=== PATIENT | female | born 2000 | race Caucasian/White ===

== ENCOUNTER 2022-02-15 08:36 | Outpatient (REF) | payer OTHER, SELFPAY ==
[2022-02-15 11:20] LABS: MANUAL DIFF FLAG NO
[2022-02-15 11:41] LABS: Alanine Aminotransferase 8 U/L (0-31); Anion Gap 13 (12-20); Aspartate Amino Transferase 14 U/L (5-31); Blood Urea Nitrogen 14 mg/dL (9-16); Calcium 9.7 mg/dL (8.4-10.2); Carbon Dioxide 27 mmol/L (22-29); Chloride 105 mmol/L (96-108); Cholesterol 202 mg/dL; Estimated Glomerular Filt Rate > 60; Glucose Fasting 100 mg/dL (60-99); HDL Cholesterol 79 mg/dL; LDL Cholesterol Calculated 115 mg/dl; Potassium 4.4 mmol/L (3.3-5.1); Sodium 141 mmol/L (135-145); Triglycerides 41 mg/dL
[2022-02-15 11:46] LABS: Basophils Percent Auto 0.9 % (0-2); Eosinophils Absolute Auto 0.1 X10*3/uL (0.0-0.4); Eosinophils Percent Auto 1.4 % (0-4); Imm Gran Abs Auto 0.01 X10*3/uL (0.00-0.03); Imm Gran Pct Auto 0.2 % (0.0-0.4); Lymphocytes Absolute Auto 1.6 X10*3/uL (1.2-4.9); Lymphocytes Percent Auto 35.5 % (20-40); Mean Corpuscular HGB Conc 32.4 g/dl (31.0-35.0); Mean Corpuscular Hemoglobin 28.6 pg (27.0-33.0); Mean Corpuscular Volume 88.3 fL (80.0-98.0); Mean Platelet Volume 10.1 fL (9.4-12.3); Monocytes Absolute Auto 0.4 X10*3/uL (0.1-1.2); Monocytes Percent Auto 7.9 % (2-11); Neutrophils Absolute Auto 2.4 x10*3/uL (2.0-8.3); Neutrophils Percent Auto 54.1 % (45-73); Platelet Count 231 X10*3/uL (160-400); Red Blood Count 4.19 X10*6/uL (4.20-5.50); Red Cell Distribution Width 12.4 % (11.0-16.0); White Blood Count 4.4 X10*3/uL (4.8-10.8)
[2022-02-15 12:08] LABS: Vitamin D 25-OH Total 15.6 ng/mL (>30)
== END 2022-02-15 08:37 | disposition home or self-care (01) ==
LOC: HO.HMGCLDS 08:36
PROVIDERS: PCP Internal Medicine; Visit Provider Internal Medicine
DX: Z00.01 Encounter for general adult medical examination with abnormal findings (principal); F41.1 Generalized anxiety disorder
CPT/HCPCS: 36415; 80048; 80061; 82306; 84450; 84460; 85025

== ENCOUNTER 2022-11-02 12:03 | Outpatient (REF) | payer OTHER, SELFPAY ==
[2022-11-02 13:55] LABS: MANUAL DIFF FLAG NO
[2022-11-02 14:35] LABS: Eosinophils Absolute Auto 0.1 X10*3/uL (0.0-0.4); Eosinophils Percent Auto 1.2 % (0-4); Hemoglobin 12.6 g/dl (12.0-16.0); Imm Gran Abs Auto 0.01 X10*3/uL (0.00-0.03); Imm Gran Pct Auto 0.2 % (0.0-0.4); Lymphocytes Absolute Auto 1.5 X10*3/uL (1.2-4.9); Lymphocytes Percent Auto 36.4 % (20-40); Mean Corpuscular HGB Conc 32.3 g/dl (31.0-35.0); Mean Corpuscular Volume 89.7 fL (80.0-98.0); Mean Platelet Volume 10.4 fL (9.4-12.3); Monocytes Absolute Auto 0.5 X10*3/uL (0.1-1.2); Monocytes Percent Auto 11.4 % (2-11); Neutrophils Absolute Auto 2.1 x10*3/uL (2.0-8.3); Neutrophils Percent Auto 49.8 % (45-73); Platelet Count 249 X10*3/uL (160-400); Red Blood Count 4.35 X10*6/uL (4.20-5.50); Red Cell Distribution Width 12.4 % (11.0-16.0); White Blood Count 4.2 X10*3/uL (4.8-10.8)
[2022-11-02 14:41] LABS: Anion Gap 13 (12-20); Blood Urea Nitrogen 13 mg/dL (9-16); Calcium 10.2 mg/dL (8.4-10.2); Carbon Dioxide 25 mmol/L (22-29); Chloride 105 mmol/L (96-108); Cholesterol 191 mg/dL; Estimated Glomerular Filt Rate > 60; Glucose Fasting 88 mg/dL (60-99); HDL Cholesterol 76 mg/dL; LDL Cholesterol Calculated 107 mg/dl; Sodium 139 mmol/L (135-145); Triglycerides 40 mg/dL
[2022-11-02 14:49] LABS: Vitamin D 25-OH Total 45.2 ng/mL (>30)
== END 2022-11-02 12:04 | disposition home or self-care (01) ==
LOC: HO.HMGCLDS 12:03
PROVIDERS: PCP Internal Medicine; Visit Provider Internal Medicine
DX: D72.819 Decreased white blood cell count, unspecified (principal); R73.01 Impaired fasting glucose
CPT/HCPCS: 36415; 80048; 80061; 82306; 85025

== ENCOUNTER 2025-03-15 09:31 | Outpatient (REF) | payer BC, SELFPAY ==
[2025-03-15 11:25] LABS: MANUAL DIFF FLAG NO
[2025-03-15 11:45] LABS: Hematocrit 36.5 % (37.0-47.0); Hemoglobin 12.1 g/dl (12.0-16.0); Imm Gran Abs Auto 0.01 X10*3/uL (0.00-0.03); Imm Gran Pct Auto 0.2 % (0.0-0.4); Lymphocytes Absolute Auto 1.4 X10*3/uL (1.2-4.9); Mean Corpuscular HGB Conc 33.2 g/dl (31.0-35.0); Mean Corpuscular Hemoglobin 28.7 pg (27.0-33.0); Mean Corpuscular Volume 86.7 fL (80.0-98.0); NRBC Abs Auto 0.000 X10*3/uL (0.0-0.012); NRBC Pct Auto 0.0 /100WBC (0.0-0.2); Platelet Count 245 X10*3/uL (160-400); Red Blood Count 4.21 X10*6/uL (4.20-5.50); White Blood Count 4.3 X10*3/uL (4.8-10.8)
[2025-03-15 12:08] LABS: Alanine Aminotransferase 11 U/L (0-31); Aspartate Amino Transferase 18 U/L (5-31); Cholesterol 190 mg/dL (<200); HDL Cholesterol 85 mg/dL (>40); Triglycerides 32 mg/dL (<150)
== END 2025-03-15 09:32 | disposition home or self-care (01) ==
LOC: HO.HMGCLDS 09:31
PROVIDERS: PCP Internal Medicine; Visit Provider Internal Medicine
DX: F41.1 Generalized anxiety disorder (principal); R73.01 Impaired fasting glucose; D72.819 Decreased white blood cell count, unspecified; Z13.220 Encounter for screening for lipoid disorders; Z13.6 Encounter for screening for cardiovascular disorders
CPT/HCPCS: 36415; 80061; 82306; 82947; 84450; 84460; 85025

== ENCOUNTER 2025-03-17 09:42 | Outpatient (AMB) | payer BC, SELFPAY ==
--- NOTE | 2025-03-17 09:46 | MHC.PC.OV ---
Vital Signs 03/17/25 09:51 Height 5 ft 5 in Weight 138 lb BMI 23.0 BP 90/60 Blood Pressure Location Lt brachial Position Sitting Respiration 16 Pulse 97 Pulse Source Pulse Oximeter Temp 98.1 F Temp Source Oral Pulse Oximetry (%) 99 Oxygen Delivery Method Room Air Intake Visit Reasons: Annual PE Intake Note: Pt is here today for her PE: Employee Benefits Director Required: No Is last menstrual period known: Yes Last menstrual period: 02/28/25 Allergies No Known Allergies Allergy (Verified 03/17/25 10:01) Medication List - Last Reconciled 03/17/25 by Annalisa Fuller MD calcium carbonate-vitamin D3 600 mg-25 mcg (1,000 unit) caps PO escitalopram oxalate 5 mg PO DAILY Tobacco use date assessed: 03/17/25 Dental Screening Dental Screen Date: 03/17/25 Did you have a dental visit in the last 12 months?: Yes Did you have a dental problem in the last 6 months where you did not have access to dental care?: No Was dental information given to patient?: Patient has dentist HPI Annual PE HPI Details 24-year-old lady here today for her physical exam. She has history of generalized anxiety disorder currently on escitalopram 5 mg once a day, which has been helping control her anxiety attacks. She is currently working in a [employer], and is also pursuing her [employer]. Dose at least 40 minutes of cardio exercise, has been compliant with healthy eating habits , eats home cooked meals She wears contact lenses and glasses, has myopia, up-to-date with her eye exam Patient has never been sexually active, would like to defer her routine Pap and pelvic exam Had recent fasting labs done which showed low normal hemoglobin hematocrit with leukopenia, normal differential, and fasting glucose, liver enzymes lipids and vitamin-D levels were all within normal limits She does not want to get a flu shot, gets very sick with the vaccine, but agrees to get her Tdap today. Does not want to get any COVID booster [facility] Medical History Impaired fasting glucose Leukopenia History of vitamin D deficiency Generalized anxiety disorder Surgical History No pertinent past surgical history Family History Paternal Grandmother Diabetes mellitus Maternal Grandfather Diabetes mellitus Social History Household Members: Family Housing: House Alcohol intake: never Patient Tobacco Use Status: Never used Tobacco e-Cigarette/Vaping Use: Never Used service: No Current occupational status: employed and student Current occupation: Works in [employer] and studying for her [employer] Current occupational exposures/hazards: No Cognitive needs: No Hearing needs: No Vision needs: Yes Female Reproductive History Menstrual Age of Menarche: 12 Duration of menses: 3-5 days Date of last menstrual period: 02/28/25 control method: none Questionnaire PHQ-9 Over the last 2 weeks, how often have you been bothered by any of the following problems? 1. Little interest or pleasure in doing things: not at all 2. Feeling down, depressed, or hopeless: not at all 3. Trouble falling or staying asleep, or sleeping too much: not at all 4. Feeling tired or having little energy: not at all 5. Poor appetite or overeating: not at all 6. Feeling bad about yourself - or that you are a failure or have let yourself or your family down: not at all 7. Trouble concentrating on things, such as reading the newspaper or watching television: not at all 8. Moving or speaking so slowly that other people could have noticed. Or the opposite - being so fidgety or restless that you have been moving around a lot more than usual: not at all 9. Thoughts that you would be better off or of hurting yourself in some way: not at all Total score: 0 Depression Screening Interpretation: Negative Depression Screening Done: Yes 58586 - PHQ-9 Billing: Yes Source: Developed by Drs. Derick Costello, Dary Durham, Naldo Fields and colleagues, with an educational ced from [employer]. Thrive Questionnaire Date Thrive assessed: 03/17/25 I am a: Patient What is your living situation today?: I have a steady place to live Within the past 12 months, did the food you bought not last and you didn't have the money to get more?: Never true Within the past 12 months, did you worry whether your food would run out before you got money to buy more?: Never true Do you have trouble paying for medicines?: No Do you have trouble getting transportation to medical appointments?: No Do you have trouble paying your heating and electricity bill?: No Do you have trouble taking care of your child, family member or friend?: No Do you have trouble with day-to-day activities such as bathing, preparing meals, shopping, managing finances, etc.?: No Are you currently unemployed and looking for a job?: No Are you interested in more education?: No THRIVE Score: 0 AUDIT C Alcohol Use Questionnaire (AUDIT-C) 1. How often do you have a drink containing alcohol?: Never Total Score: 0 Score Reviewed/Action Taken: Yes IRMA-7 AMB Questionnaire IRMA-7 Feeling nervous, anxious, or on edge: 1 = Several days Not being able to stop or control worryin = Several days Worrying too much about different things: 2 = More than half the days Trouble relaxin = Not at all Being so restless that it is hard to sit still: 0 = Not at all Becoming easily annoyed or irritable: 1 = Several days Feeling afraid as if something awful might happen: 0 = Not at all Total IRMA-7 score (0-4 normal; 5-9 mild; 10-14 moderate; 15-21 severe): 5 Source: Developed by Drs. Derick Costello, Dary Durham, Naldo Fields and colleagues, with an educational ced from [employer]. IRMA-7 Assessment Billing IRMA-7 Assessment Tool: IRMA-7 Assessment 91561 Review of Systems Const Denies body aches, Denies fever(s), Denies headache(s) and Denies weakness Eyes Reports no additional complaints and Reports requires corrective lenses ENT Denies dizziness, Denies headache(s), Denies nasal congestion, Denies nasal discharge and Denies sore throat Card Denies chest pain, Denies lightheadedness and Denies dyspnea Resp Denies chest congestion, Denies cough, Denies dyspnea and Denies wheezing GI Denies abdominal pain, Denies change in bowel habits and Denies heartburn Denies abnormal menses, Denies hematuria, Denies urinary frequency, Denies genital lesions, Denies dysuria and Denies urinary urgency Musc Reports no additional complaints Skin/Breast Denies breast pain, Denies breast mass, Denies lesions and Denies rash Neuro Denies dizziness, Denies headache(s) and Denies weakness Psych Reports no additional complaints Endo Reports no additional complaints Lambert/Lymph Denies easy bruising Aller/Immun Denies seasonal rhinorrhea and Denies wheezing Physical exam (Primary Care) Vital Signs: Last Vital Signs Temp 98.1 F 03/17/25 09:51 Pulse 97 03/17/25 09:51 Resp 16 03/17/25 09:51 BP 90/60 03/17/25 09:51 Pulse Ox 99 03/17/25 09:51 Oxygen Delivery Method Room Air 03/17/25 09:51 BMI result Body Mass Index 23.0 Tobacco/Smoking Status: Tobacco use Status Tobacco use date assessed 03/17/25 03/17/25 09:48 Patient Tobacco Use Status Never used Tobacco 03/17/25 10:26 e-Cigarette/Vaping Use Never Used 03/17/25 10:26 PHQ-9: PHQ-9 Score PHQ-9: Total score 0 03/17/25 10:38 Depression Screening Interpretation: Negative Thrive Assessment: Date of Thrive Assessment Date Thrive assessed 03/17/25 03/17/25 10:29 Advance Care Planning discussion: Completed/Scanned Date of discussion: 03/17/25 Who was present: Patient Forms completed: Health Care Proxy Time spent: 16-45 minutes Actual minutes spent: 2 Const General: no acute distress and alert Orientation/consciousness: patient oriented x3 Limitations: no limitations HENMT Ears: external ears normal, TM's normal bilaterally and EAC's normal General nose exam: Normal external nose present and No nasal discharge present Mouth: Normal oral and palatal mucosa present and moist mucous membranes Eyes General: appearance normal, both eyes and all related structures Conjunctivae: conjunctivae normal Sclerae: sclerae normal Pupils: Equal, round and reactive pupils present EOM: EOMs intact bilaterally Neck Neck: Yes full ROM, Yes no lymphadenopathy and Yes supple Chest Breast/axilla palpation: normal palpation of the breasts Resp Effort & Inspection: normal respiratory effort and able to speak in complete sentences Auscultation: clear to auscultation bilaterally Cardio Rate: regular rate Rhythm: regular rhythm Heart sounds: S1 normal heart sound present and S2 normal heart sound present GI Palpation (GI): Soft to palpation, nontender and no masses Auscultation: normal bowel sounds Other: Declines pelvic exam, never been sexually active Back/Spine/Pelvis Back: No back tenderness Skin General skin exam: no rashes or lesions noted Neuro General: patient oriented x3, gait normal, tone normal, moves all extremities and no focal motor deficits Cranial nerves: Yes Equal, round and reactive pupils present Cognition (Neuro): normal cognition Extrem General: Yes full ROM, Yes no joint enlargement, Yes no clubbing, cyanosis or edema and Yes no calf tenderness Psych Appearance: grossly normal and well kempt Mental Status: mental status grossly normal Speech and movement: Normal speech and movement present Affect: normal affect Immunizations Boostrix Tdap 2.5 Lf unit-8 mcg-5 Lf/0.5 mL intramuscular syringe Performing Provider: Annalisa Fuller MD Performing Location: [facility] Administered by: Miranda Uribe CMA on 03/17/25 10:29 Dose Route Admin Location Dispensed Lot Number Expiration Date [facility] Senior Cost Analyst 0.5 mL IM Left Deltoid 0.5 mL [id number] 10/18/27 [id number] Snappy shuttle Total Dispensed Waste 0.5 mL 0 % VIS Given Date VIS Provided VIS Publication Date 03/17/25 Single Vaccine 20 Eligibility Eligibility Date Funding Source Not [facility] Eligible 03/17/25 Private Results Reviewed Results Reviewed: Name: Agnieszka Gibson Age/Sex: 24/F : 2000 Unit#: [id number] Attend Dr: Annalisa Fuller MD Re03/15/25 Status: DEP REF Location: [id number] Disch: SPEC : [id number] ALIZA: 03/15/25 STATUS: COMP REQ : [id number] RECD: 03/15/[address]: Annalisa Fuller MD COMP: 03/15/25 ENTERED: 03/15/[address]: ORDERED: Glu Fasting, AST, ALT, Lipid Panel, Vitamin D 25-OH Test Result Flag Reference FBS 92 60-99 mg/dL AST (GOT) 18 5-31 U/L ALT (GPT) 11 0-31 U/L Triglyceride 32 <150 mg/dL Desirable Triglyceride: less than 150 mg/dL Borderline High Triglyceride 150-199 mg/dL High Triglyceride: 200-499 mg/dL Very High Triglyceride: greater than or equal to 5OO mg/dL Cholesterol 190 <200 mg/dL Desirable Cholesterol: less than 200 mg/dL Borderline High Cholesterol: 200-239 mg/dL High Cholesterol: greater than 239 mg/dL LDL Calculated 99 <100 mg/dL Desirable LDL: less than 100 mg/dL Near Optimal/Above Optimal LDL: 110-129 mg/dL Borderline High LDL: 130-159 mg/dL High LDL: 160-189 mg/dL Very High LDL: greater than or equal to 190 mg/dL HDL 85 >40 mg/dL Desirable HDL: greater than 40 mg/dL Note: This HDL assay may give artificially low results in patients with liver disease. Vitamin D 25-OH 44.3 >30 ng/mL Health Based Reference Values* < 20 ng/mL Deficient 20-30 ng/mL Insufficient > 30 ng/mL Sufficient Coding Level of Care Code Est Pt Prev Care 18-39y(50352) Diagnoses Generalized anxiety disorder F41.1 Impaired fasting glucose R73.01 Leukopenia, unspecified type D72.819 Leukopenia type: unspecified Advance directive discussed with patient Z71.89 Annual visit for general adult medical examination with abnormal findings Z00.01 Additional Codes IRMA-7 Assessment Billing - IRMA-7 Assessment Tool: IRMA-7 Assessment 23304 ([id number]) PHQ-9 - 78559 - PHQ-9 Billing: Yes ([id number]) Vital Signs *Quality* - Advance Care Planning discussion: Completed/Scanned ([id number]) Vital Signs *Quality* - Time spent: 16-45 minutes ([id number]) Assessment & Plan Assessment & Plan (1) Generalized anxiety disorder: Code(s): F41.1 - Generalized anxiety disorder Category: Medical Plan: Currently stable and controlled on escitalopram 5 mg taken once a day, refills sent (2) Impaired fasting glucose: Code(s): R73.01 - Impaired fasting glucose Category: Medical Plan: Fasting glucose now within normal limits, reinforced importance of continuing daily regular exercise and adherence to healthy eating habits. (3) Leukopenia: Code(s): D72.819 - Decreased white blood cell count, unspecified Category: Medical Qualifiers: Leukopenia type: unspecified Qualified Code(s): D72.819 - Decreased white blood cell count, unspecified Plan: Currently asymptomatic, her white blood cell differential is within normal limits (4) Advance directive discussed with patient: Code(s): Z71.89 - Other specified counseling Plan: Initiated the conversation about Advanced Directives. Advanced Directives help patients prepare for current and future decisions about their medical treatment and place of care. Discussed with patient that it is a process where a patients current condition and prognosis are reviewed, their wishes for information regarding their illness are elicited, and likely medical dilemmas are presented and options discussed. Healthcare proxy form completed today. The form can be amended as needed, reviewed yearly and make changes as needed (5) Annual visit for general adult medical examination with abnormal findings: Code(s): Z00.01 - Encounter for general adult medical examination with abnormal findings Plan: Recent fasting lab results reviewed with patient.. Continue regular dental visit every 6 months and regular eye exams, at least every 2 years, currently up-to-date. Continue taking calcium and vitamin-D 3 supplements, in addition to weight-bearing exercises to help maintain good muscle tone and weight control. Instructed to do self-breast exam, and recommended to get yearly mammogram, starting at age 40. Patient deferred getting a routine Pap and pelvic exam, never been sexually active. Declines flu vaccine or COVID booster, Tdap given today. Orders: Orders TDaP Immunization Today Z23 - Encounter for immunization Medications: Refilled escitalopram oxalate 5 mg PO DAILY 90 tabs 4RF F41.1 - Generalized anxiety disorder
[2025-03-17 09:51] VITALS: BP 90/60; PULSE 97; RESP 16; TEMP 36.7; O2SAT 99; BMI 23.0
== END 2025-03-17 10:28 | disposition home or self-care (01) ==
LOC: HO.HMCC 09:43
PROVIDERS: PCP Internal Medicine; Visit Provider Internal Medicine
DX: Z00.01 Encounter for general adult medical examination with abnormal findings (principal); F41.1 Generalized anxiety disorder; R73.01 Impaired fasting glucose; D72.819 Decreased white blood cell count, unspecified; Z71.89 Other specified counseling; Z23 Encounter for immunization; Z00.00 Encounter for general adult medical examination without abnormal findings

== ENCOUNTER → 2025-03-17 09:42 | Outpatient (BNVA) | payer BC, SELFPAY | PROVIDERS: PCP Internal Medicine; Visit Provider Internal Medicine | DX: Z23 Encounter for immunization (principal); Z00.01 Encounter for general adult medical examination with abnormal findings; F41.1 Generalized anxiety disorder; R73.01 Impaired fasting glucose; D72.819 Decreased white blood cell count, unspecified; Z71.89 Other specified counseling | CPT/HCPCS: 90471; 90715; 96127 ==